=== PATIENT | male | born 1940 | race Caucasian/White ===

== ENCOUNTER 2024-12-24 20:15 | Inpatient (IN) | payer MEDICARE, MEDICAID ==
[~2024-12-24] VITALS: Ht 170.2 cm; Wt 63.0 kg
[2024-12-24 22:01] VITALS: O2SAT 99
[2024-12-24] MEDS: MIDAZOLAM HCL 2 MG/2 ML VIAL IM ONE (22:01)
[2024-12-25] MEDS: MIDAZOLAM HCL 2 MG/2 ML VIAL IM ONE (00:12)
[2024-12-25] MEDS: HALOPERIDOL LACTATE 5MG/ML VIAL IM ONE (00:13)
[2024-12-25] MEDS ORDERED: GUAIFENESIN 200MG/10ML SUGAR FREE UDC PO PRN (01:45)
[2024-12-25] MEDS ORDERED: DOCUSATE SODIUM 100MG CAPSULE PO PRN (01:45)
[2024-12-25] MEDS ORDERED: CLONIDINE 0.1MG TABLET PO PRN (01:45)
[2024-12-25] MEDS ORDERED: LORAZEPAM 2MG/ML UD SYRINGE IV PRN (01:45)
[2024-12-25] MEDS ORDERED: ACETAMINOPHEN 325MG TABLET PO PRN ×2 (01:45)
[2024-12-25] MEDS ORDERED: ONDANSETRON HCL 4MG/2ML INJ IV PRN (01:45)
[2024-12-25] MEDS ORDERED: IPRATROPIUM/ALBUTEROL 0.5-3(2.5)MG/3ML NEB HHN PRN (01:45)
[2024-12-25] MEDS: HALOPERIDOL LACTATE 5MG/ML VIAL IM SCH (02:00)
[2024-12-25] MEDS: MIDAZOLAM HCL 2 MG/2 ML VIAL IM SCH (02:00)
[2024-12-25] MEDS: DIPHENHYDRAMINE 50MG/ML VIAL IM SCH (02:00)
[2024-12-25 02:13] LABS: BASOPHILS % 0.7 % (0.0-2.0); EOSINOPHILS % 5.6 % (0.0-5.0); HEMATOCRIT. 38.3 % (42.0-52.0); HEMOGLOBIN. 12.8 g/dL (14.0-18.0); LYMPHOCYTES % 39.3 % (20.0-50.0); MEAN PLATELET VOLUME 8.6 fl (7.4-10.4); MONOCYTES % 10.7 % (2.0-8.0); NEUTROPHILS % 43.7 % (40.0-76.0); PLATELET 256 x1000/uL (130-400); RED BLOOD CELL COUNT 4.15 mill/uL (4.7-6.1); RED CELL DISTRIBUTION WIDTH 15.6 % (11.6-14.6)
[2024-12-25 02:28] LABS: UREA NITROGEN BLOOD 31 mg/dL (9-23)
[2024-12-25 02:30] LABS: CREATININE 0.9 mg/dL (0.6-1.3); ETHANOL BLOOD < 10 mg/dL (<10)
[2024-12-25 02:31] LABS: ASPARTATE AMINOTRANSFERASE 42 IU/L (<34)
[2024-12-25 02:32] LABS: BILIRUBIN DIRECT 0.2 mg/dL (<=3.0); BILIRUBIN TOTAL 0.5 mg/dL (0.1-1.0); PROTEIN TOTAL 6.9 g/dL (6.0-8.3)
[2024-12-25 02:34] LABS: TROPONIN I HIGH SENSITIVITY 408 ng/L (3.0-53)
[2024-12-25 02:45] VITALS: BP 150/71; PULSE 60; RESP 17; TEMP 36.696
[2024-12-25] MEDS: SODIUM CHLORIDE 0.45% 1,000 ML IV SCH (02:45)
[2024-12-25] MEDS ORDERED: ENOXAPARIN 80MG/0.8ML SYR SUBCUT SCH (03:00)
[2024-12-25] MEDS ORDERED: MVI, ADULT NO.1 10 ML, FOLIC ACID 1 MG, THIAMINE HCL 100 MG in SODIUM CHLORIDE 0.9% 1,0... IV SCH (04:00)
[2024-12-25] MEDS ORDERED: DEXTROSE 50% WATER 50ML SYRINGE IV PRN (05:15)
[2024-12-25] MEDS: BLOOD SUGAR DIAGNOSTIC STRIP TEST SCH (06:45)
[2024-12-25] MEDS: PANTOPRAZOLE 40MG DR TABLET PO SCH (06:45)
[2024-12-25 06:47] LABS: INR 1.0
[2024-12-25] MEDS: INSULIN LISPRO 100 UNITS/ML SUBCUT SCH (07:11)
[2024-12-25 08:00] VITALS: BP 122/69; PULSE 64; RESP 18; TEMP 36.5; O2SAT 94
[2024-12-25 09:07] LABS: LDL CHOLESTEROL 51.0 mg/dL (5-100); TRIGLYCERIDE 75.0 mg/dL (0-150)
[2024-12-25 09:10] LABS: T4 FREE 1.13 ng/dL (0.89-1.76)
[2024-12-25] MEDS: ASPIRIN 81MG TABLET PO SCH (09:21)
[2024-12-25] MEDS: ENOXAPARIN 80MG/0.8ML SYR SUBCUT SCH (09:21)
[2024-12-25 12:00] VITALS: BP 150/88; PULSE 65; RESP 18; TEMP 36.3; O2SAT 94
[2024-12-25 12:35] LABS: TROPONIN I HIGH SENSITIVITY 315 ng/L (3.0-53)
[2024-12-25 16:00] VITALS: BP 135/77; PULSE 67; RESP 18; TEMP 36.4; O2SAT 95
[2024-12-25 19:43] LABS: TROPONIN I HIGH SENSITIVITY 341 ng/L (3.0-53)
[2024-12-25 20:00] VITALS: BP 128/77; PULSE 75; RESP 18; TEMP 36.6; O2SAT 97
[2024-12-26] VITALS: BP 144/79; PULSE 64; RESP 18; TEMP 36.4; O2SAT 95
[2024-12-26 04:00] VITALS: BP 126/78; PULSE 63; RESP 18; TEMP 36.5; O2SAT 97
[2024-12-26 07:51] LABS: PLATELET 246 x1000/uL (130-400); RED BLOOD CELL COUNT 3.99 mill/uL (4.7-6.1); RED CELL DISTRIBUTION WIDTH 15.1 % (11.6-14.6)
[2024-12-26 08:00] VITALS: BP 143/104; PULSE 68; RESP 18; TEMP 36.4; O2SAT 96
[2024-12-26 08:12] LABS: CREATININE 0.9 mg/dL (0.6-1.3); UREA NITROGEN BLOOD 26 mg/dL (9-23)
[2024-12-26 08:52] LABS: TROPONIN I HIGH SENSITIVITY 313 ng/L (3.0-53)
[2024-12-26 12:00] VITALS: BP 109/59; PULSE 80; RESP 20; TEMP 37; O2SAT 95
[2024-12-26] MEDS: AMLODIPINE 5MG TABLET PO SCH (12:00)
[2024-12-26 16:00] VITALS: BP 115/70; PULSE 70; RESP 18; TEMP 36.6; O2SAT 95
[2024-12-26 20:00] VITALS: BP 134/73; PULSE 68; RESP 17; TEMP 36.4; O2SAT 97
[2024-12-27] VITALS: BP 147/92; PULSE 67; RESP 19; TEMP 36.4; O2SAT 93
[2024-12-27 04:00] VITALS: BP 107/65; PULSE 61; RESP 18; TEMP 36.5; O2SAT 94
[2024-12-27 07:20] LABS: PLATELET 217 x1000/uL (130-400); RED BLOOD CELL COUNT 3.81 mill/uL (4.7-6.1); RED CELL DISTRIBUTION WIDTH 15.4 % (11.6-14.6)
[2024-12-27 07:31] LABS: CREATININE 1.1 mg/dL (0.6-1.3); UREA NITROGEN BLOOD 29 mg/dL (9-23)
[2024-12-27 08:00] VITALS: BP 123/81; PULSE 73; RESP 18; TEMP 36.1; O2SAT 98
[2024-12-27] MEDS: ENOXAPARIN 40MG/0.4ML SYR SUBCUT SCH (08:17)
[2024-12-27 12:00] VITALS: BP 130/88; PULSE 80; RESP 19; TEMP 36; O2SAT 100
[2024-12-27 16:00] VITALS: BP 123/77; PULSE 81; RESP 18; TEMP 36.1; O2SAT 90
[2024-12-27 20:00] VITALS: BP 129/78; PULSE 67; RESP 18; TEMP 37.1; O2SAT 97
[2024-12-28] VITALS: BP 107/67; PULSE 65; RESP 16; TEMP 36.5; O2SAT 97
[2024-12-28 04:00] VITALS: BP 98/76; PULSE 63; RESP 16; RESP 17; TEMP 36.2; O2SAT 100; O2SAT 95
[2024-12-28 07:23] LABS: PLATELET 213 x1000/uL (130-400); RED BLOOD CELL COUNT 3.69 mill/uL (4.7-6.1); RED CELL DISTRIBUTION WIDTH 15.2 % (11.6-14.6)
[2024-12-28 07:33] LABS: CREATININE 1.2 mg/dL (0.6-1.3)
[2024-12-28 07:34] LABS: UREA NITROGEN BLOOD 33 mg/dL (9-23)
[2024-12-28 08:00] VITALS: BP 126/69; PULSE 73; RESP 17; TEMP 36.4; O2SAT 96
[2024-12-28 08:23] LABS: FOLIC ACID (FOLATE) SERUM 7.66 ng/mL (>5.38); VITAMIN B12 SERUM 1007 pg/mL (211-911)
[2024-12-28] MEDS: SODIUM CHLORIDE 0.9% 1,000 ML IV SCH (10:00)
[2024-12-28 12:00] VITALS: BP 96/70; PULSE 60; RESP 17; TEMP 36.6; O2SAT 100
[2024-12-28 20:00] VITALS: BP 141/67; PULSE 64; RESP 18; TEMP 36.8; O2SAT 98
[2024-12-29] VITALS: BP 145/90; PULSE 64; RESP 19; TEMP 36.4; O2SAT 94
[2024-12-29 08:00] VITALS: BP 152/94; PULSE 76; RESP 18; TEMP 36.4; O2SAT 96
[2024-12-29] MEDS: FAMOTIDINE 20MG TABLET PO SCH (09:00)
[2024-12-29] MEDS: ENOXAPARIN 60MG/0.6ML SYR SUBCUT SCH (09:00)
[2024-12-29 12:00] VITALS: BP 117/86; PULSE 67; RESP 20; TEMP 36.7; O2SAT 100
[2024-12-29 16:00] VITALS: BP 132/75; PULSE 68; RESP 18; TEMP 36.8; O2SAT 100
[2024-12-29 20:00] VITALS: BP 138/86; PULSE 74; RESP 18; TEMP 36.6; O2SAT 95
[2024-12-29] MEDS: LORAZEPAM 0.5MG TABLET PO PRN (23:48)
[2024-12-30] VITALS: BP 148/87; PULSE 65; RESP 18; TEMP 36.5; O2SAT 98
[2024-12-30 04:00] VITALS: BP 103/63; PULSE 60; RESP 16; TEMP 36.4; O2SAT 96
[2024-12-30 08:00] VITALS: BP 106/61; PULSE 69; RESP 16; TEMP 36.5; O2SAT 96
[2024-12-30 10:42] LABS: PLATELET 206 x1000/uL (130-400); RED BLOOD CELL COUNT 3.75 mill/uL (4.7-6.1); RED CELL DISTRIBUTION WIDTH 15.4 % (11.6-14.6)
[2024-12-30 11:17] LABS: CREATININE 1.1 mg/dL (0.6-1.3); UREA NITROGEN BLOOD 30 mg/dL (9-23)
[2024-12-30 12:00] VITALS: BP 106/70; PULSE 64; RESP 18; TEMP 36.4; O2SAT 97
[2024-12-30 15:09] VITALS: BP 115/78; PULSE 81; RESP 18; TEMP 97.2
[2024-12-30 16:00] VITALS: BP 115/78; PULSE 81; RESP 18; TEMP 36.2; O2SAT 97
[2024-12-31] VITALS: BP 117/64; PULSE 78; RESP 18; TEMP 36.4; O2SAT 95
[2024-12-31 04:00] VITALS: BP 139/87; PULSE 65; RESP 18; TEMP 35.9; O2SAT 97
[2024-12-31 08:00] VITALS: BP 150/100; PULSE 79; RESP 20; TEMP 36.3; O2SAT 98
[2024-12-31 12:00] VITALS: BP 126/84; PULSE 73; RESP 19; TEMP 36.3; O2SAT 98
[2024-12-31 16:00] VITALS: BP 135/80; PULSE 81; RESP 19; TEMP 36.4; O2SAT 97
[2024-12-31 20:00] VITALS: BP 128/60; PULSE 69; RESP 18; TEMP 36.5; O2SAT 95
[2025-01-01 08:00] VITALS: BP 118/90; PULSE 73; RESP 18; TEMP 36.3; O2SAT 97
[2025-01-01 12:00] VITALS: BP 130/75; PULSE 80; RESP 18; TEMP 36.3; O2SAT 99
[2025-01-01 16:00] VITALS: BP 115/78; PULSE 62; RESP 18; TEMP 36.4; O2SAT 98
[2025-01-01 20:00] VITALS: BP 148/75; PULSE 66; RESP 18; TEMP 36.8; O2SAT 97
[2025-01-02 08:00] VITALS: BP 114/75; PULSE 61; RESP 19; TEMP 36.3; O2SAT 98
[2025-01-02 12:00] VITALS: BP 119/74; PULSE 76; RESP 18; TEMP 36.4; O2SAT 98
[2025-01-02 16:00] VITALS: BP 115/84; PULSE 69; RESP 19; TEMP 36.5; O2SAT 97
[2025-01-02 20:00] VITALS: BP 126/79; PULSE 76; RESP 16; TEMP 36.6; O2SAT 98
[2025-01-03] VITALS: BP 134/83; PULSE 73; RESP 18; TEMP 36.6; O2SAT 98
[2025-01-03 08:00] VITALS: BP 133/81; PULSE 61; RESP 20; TEMP 36.4; O2SAT 96
[2025-01-03 12:00] VITALS: BP 138/85; PULSE 55; RESP 20; TEMP 36.7; O2SAT 98
[2025-01-03 16:00] VITALS: BP 141/79; PULSE 64; RESP 20; TEMP 36.4
[2025-01-03 20:00] VITALS: BP 112/74; PULSE 61; RESP 18; TEMP 36.7; O2SAT 99
[2025-01-04] VITALS: BP 116/86; PULSE 71; RESP 20; TEMP 36.6; O2SAT 98
[2025-01-04 04:00] VITALS: BP 110/74; PULSE 75; RESP 18; TEMP 36.7; O2SAT 98
[2025-01-04 08:00] VITALS: BP 105/78; PULSE 59; RESP 18; TEMP 36.3; O2SAT 99
[2025-01-04 12:00] VITALS: BP 126/82; PULSE 62; RESP 18; TEMP 36.6; O2SAT 18
[2025-01-04 20:00] VITALS: BP 107/56; PULSE 66; RESP 20; TEMP 36.6; O2SAT 97
[2025-01-05 04:00] VITALS: BP 112/68; PULSE 62; RESP 18; TEMP 36.7; O2SAT 97
[2025-01-05 08:00] VITALS: BP 121/80; PULSE 64; RESP 18; TEMP 36.4; O2SAT 99
[2025-01-05 12:00] VITALS: BP 118/59; PULSE 67; RESP 16; TEMP 36.1; O2SAT 98
[2025-01-05 16:00] VITALS: BP 137/78; PULSE 64; RESP 16; TEMP 36.3; O2SAT 98
[2025-01-05 20:00] VITALS: BP 144/98; PULSE 65; RESP 20; TEMP 36.7; O2SAT 99
[2025-01-06] VITALS: BP 122/74; PULSE 62; RESP 20; TEMP 36.6; O2SAT 98
[2025-01-06 07:51] LABS: CREATININE 1.0 mg/dL (0.6-1.3); UREA NITROGEN BLOOD 29 mg/dL (9-23)
[2025-01-06 08:00] VITALS: BP 123/65; PULSE 68; RESP 20; TEMP 36.5; O2SAT 100
[2025-01-06 08:05] LABS: PLATELET 201 x1000/uL (130-400); RED BLOOD CELL COUNT 3.83 mill/uL (4.7-6.1); RED CELL DISTRIBUTION WIDTH 16.7 % (11.6-14.6)
[2025-01-06 12:00] VITALS: BP 110/76; PULSE 69; RESP 20; TEMP 36.4; O2SAT 99
[2025-01-06 16:00] VITALS: BP 106/56; PULSE 64; RESP 20; TEMP 36.3; O2SAT 96
[2025-01-07] VITALS: BP 134/75; PULSE 70; RESP 18; TEMP 36.5; O2SAT 99
[2025-01-07 08:25] VITALS: BP 137/89; PULSE 74; RESP 18; TEMP 36.6; O2SAT 99
[2025-01-07 16:15] VITALS: BP 122/75; PULSE 69; RESP 18; TEMP 36.4; O2SAT 96
[2025-01-08] VITALS: BP 145/91; PULSE 67; RESP 18; TEMP 36.2; O2SAT 99
[2025-01-08 08:00] VITALS: BP 127/83; RESP 20; TEMP 36.7; O2SAT 96
[2025-01-08 12:00] VITALS: BP 140/74; RESP 20; TEMP 36.5; O2SAT 95
[2025-01-08 16:00] VITALS: BP 125/83; RESP 20; TEMP 36.7; O2SAT 97
[2025-01-09 20:00] VITALS: BP 145/86; PULSE 66; RESP 14; TEMP 36.8; O2SAT 98
[2025-01-10] VITALS: BP 132/76; RESP 14; TEMP 36.2; O2SAT 97
[2025-01-10 08:00] VITALS: BP 115/69; PULSE 63; RESP 16; TEMP 36.4; O2SAT 96
[2025-01-10 12:00] VITALS: BP 134/84; PULSE 62; RESP 17; TEMP 36.7; O2SAT 97
[2025-01-10 16:00] VITALS: BP 116/64; PULSE 64; RESP 17; TEMP 36.5; O2SAT 96
[2025-01-11 08:00] VITALS: BP 123/71; PULSE 63; RESP 17; TEMP 36.7; O2SAT 96
[2025-01-11 12:00] VITALS: BP 121/69; PULSE 65; RESP 17; TEMP 36.5; O2SAT 97
[2025-01-11 16:00] VITALS: BP 122/83; PULSE 63; RESP 18; TEMP 36.8; O2SAT 96
[2025-01-12 08:30] VITALS: BP 104/69; PULSE 74; RESP 16; TEMP 36.7; O2SAT 96
[2025-01-12 12:00] VITALS: BP 127/76; PULSE 62; RESP 18; TEMP 36.6; O2SAT 97
[2025-01-13 08:00] VITALS: BP 114/83; PULSE 63; RESP 18; TEMP 36.4; O2SAT 98
[2025-01-13 12:00] VITALS: BP 118/76; PULSE 67; RESP 18; TEMP 36.7; O2SAT 98
[2025-01-13 16:00] VITALS: BP 117/69; PULSE 66; RESP 18; TEMP 36.5; O2SAT 9
[2025-01-13] MEDS: ENOXAPARIN 60MG/0.6ML SYR SUBCUT SCH (16:30)
[2025-01-14 08:00] VITALS: BP 106/77; PULSE 61; RESP 17; TEMP 36.5; O2SAT 96
[2025-01-14 12:00] VITALS: BP 107/68; PULSE 63; RESP 18; TEMP 36.8; O2SAT 96
[2025-01-14 20:00] VITALS: BP 108/64; PULSE 72; RESP 18; TEMP 36.8; O2SAT 99
[2025-01-15 08:00] VITALS: BP 138/87; PULSE 70; RESP 17; TEMP 36.5; O2SAT 97
[2025-01-15] MEDS ORDERED: AMLO5TAB88 PO (09:43)
[2025-01-15] MEDS ORDERED: ASPI-1160 PO (09:43)
[2025-01-15 12:00] VITALS: BP 128/80; PULSE 65; RESP 18; TEMP 36.4; O2SAT 96
[2025-01-15 12:48] VITALS: BP 140/88; PULSE 64; RESP 17; TEMP 97.8
[2025-01-16 08:00] VITALS: BP 154/87; PULSE 68; RESP 18; TEMP 36.4; O2SAT 96
[2025-01-16 12:00] VITALS: BP 107/78; PULSE 67; RESP 18; TEMP 36.4; O2SAT 100
[2025-01-17 08:00] VITALS: BP 113/61; PULSE 64; RESP 17; TEMP 36.6; O2SAT 98
[2025-01-17 12:00] VITALS: BP 118/85; PULSE 64; RESP 18; TEMP 36.4; O2SAT 100
[2025-01-17 16:00] VITALS: BP 130/80; PULSE 63; RESP 18; TEMP 36.3; O2SAT 99
[2025-01-18 08:00] VITALS: BP 106/76; PULSE 66; RESP 18; TEMP 36.8; O2SAT 97
[2025-01-18 12:00] VITALS: BP 107/65; PULSE 89; RESP 18; TEMP 36.4; O2SAT 98
[2025-01-19] VITALS: BP 131/74; PULSE 60; RESP 18; TEMP 36.5; O2SAT 98
[2025-01-19 04:00] VITALS: BP 135/72; PULSE 60; RESP 18; TEMP 36.5; O2SAT 98
[2025-01-19 08:00] VITALS: BP 104/65; PULSE 63; RESP 18; TEMP 36.8; O2SAT 100
[2025-01-19 16:00] VITALS: BP 143/65; PULSE 61; RESP 18; TEMP 36.5; O2SAT 97
[2025-01-19 20:00] VITALS: BP 132/78; PULSE 78; RESP 18; TEMP 36.6; O2SAT 98
[2025-01-20 04:00] VITALS: BP 109/68; PULSE 62; RESP 16; TEMP 36.5
[2025-01-20 08:00] VITALS: BP 120/86; PULSE 80; RESP 18; TEMP 36.7
[2025-01-20 16:00] VITALS: BP 134/79; PULSE 71; RESP 16; TEMP 36.9
[2025-01-20 20:00] VITALS: BP 122/74; PULSE 69; RESP 18; TEMP 36.8; O2SAT 98
[2025-01-21] VITALS: BP 138/85; PULSE 68; RESP 16; TEMP 36.5; O2SAT 97
[2025-01-21 04:00] VITALS: BP 111/60; PULSE 72; RESP 16; TEMP 36.6; O2SAT 96
[2025-01-21 08:00] VITALS: BP 123/72; PULSE 60; RESP 18; TEMP 36.2; O2SAT 98
[2025-01-21 12:00] VITALS: BP 127/69; PULSE 60; RESP 17; TEMP 36.5; O2SAT 98
[2025-01-21 16:00] VITALS: BP 126/73; PULSE 63; RESP 18; TEMP 36.6; O2SAT 100
[2025-01-21 20:00] VITALS: BP 135/105; PULSE 71; RESP 18; TEMP 36.5; O2SAT 100
[2025-01-22 04:00] VITALS: BP 136/93; PULSE 85; RESP 19; TEMP 36.2; O2SAT 96
[2025-01-22 08:00] VITALS: BP 133/97; PULSE 72; RESP 18; TEMP 36.6; O2SAT 97
[2025-01-25 04:00] VITALS: BP 119/88; RESP 18; TEMP 36.6; O2SAT 97
[2025-01-27 08:00] VITALS: BP 110/70; PULSE 61; RESP 21; TEMP 36.5
[2025-01-27] MEDS ORDERED: CLONIDINE 0.1MG TABLET PO PRN (13:15)
[2025-01-27] MEDS ORDERED: MAGNESIUM/ALUMINUM HYDROXIDE/SIMETHICONE 30ML UDC PO PRN (13:15)
[2025-01-27] MEDS ORDERED: DOCUSATE SODIUM 100MG CAPSULE PO PRN (13:15)
[2025-01-27] MEDS ORDERED: GUAIFENESIN-DM 200MG-20MG/10ML UDC PO PRN (13:15)
[2025-01-27] MEDS ORDERED: ACETAMINOPHEN 325MG TABLET PO PRN (13:15)
[2025-01-27 14:10] VITALS: BP 142/87; PULSE 75; RESP 20; TEMP 36.8
[2025-01-27] MEDS: ASPIRIN 81MG TABLET PO SCH (14:15)
[2025-01-27] MEDS: AMLODIPINE 5MG TABLET PO SCH (14:15)
[2025-01-27 16:00] VITALS: BP 117/89; PULSE 65; RESP 19; TEMP 36.6
[2025-01-27 20:00] VITALS: RESP 19; TEMP 36.7
[2025-01-27] MEDS: FAMOTIDINE 20MG TABLET PO SCH (21:48)
[2025-01-28] VITALS: BP 126/72; RESP 19; TEMP 36.7
[2025-01-28 04:00] VITALS: TEMP 36.7
[2025-01-28] MEDS: ENOXAPARIN 40MG/0.4ML SYR SUBCUT SCH (08:47)
[2025-01-29 08:00] VITALS: RESP 18
[2025-01-29 12:00] VITALS: RESP 17
[2025-01-29 16:00] VITALS: RESP 16
[2025-01-30 08:00] VITALS: BP 126/85; PULSE 60; RESP 19; TEMP 36.5
[2025-01-30 12:00] VITALS: BP 145/87; PULSE 61; RESP 18; TEMP 36.5
[2025-01-30 16:00] VITALS: BP 139/83; PULSE 64; RESP 20; TEMP 36.2
[2025-01-31 08:00] VITALS: BP 142/97; PULSE 72; RESP 19; TEMP 36.8; O2SAT 100
[2025-01-31 12:00] VITALS: BP 132/86; PULSE 69; RESP 17; TEMP 36.6; O2SAT 98
[2025-02-01 08:00] VITALS: BP 118/93; PULSE 62; RESP 18; TEMP 36.4; O2SAT 99
[2025-02-01 12:00] VITALS: BP 102/69; PULSE 63; RESP 18; TEMP 36.7; O2SAT 98
[2025-02-01 16:00] VITALS: BP 132/85; PULSE 69; RESP 18; TEMP 36.3; O2SAT 100
[2025-02-02 08:00] VITALS: BP 114/70; PULSE 60; RESP 18; TEMP 36.4; O2SAT 98
[2025-02-02 16:00] VITALS: BP 128/61; PULSE 71; RESP 18; TEMP 36.6; O2SAT 98
[2025-02-03] MEDS: LORAZEPAM 0.5MG TABLET PO NR (13:00)
== END 2025-02-03 22:39 | disposition home or self-care (01) | DRG 91 ==
LOC: ER 20:15 → 5WST 23:37 → EDBEDREQ 23:39 → EDBEDREQSVC 23:39 → EDBEDREQTM 23:39 → ENRESERV 12-25 → 8EST 12-29 20:20
PROVIDERS: ADMIT Internal Medicine; ATTEND Internal Medicine
PROC: GZ56ZZZ Individual Psychotherapy, Supportive (ICD-10-PCS; principal; 2024-12-25)
DX: G92.8 Other toxic encephalopathy (principal); I21.A1 Myocardial infarction type 2; Z59.00 Homelessness unspecified; F41.9 Anxiety disorder, unspecified; F29 Unspecified psychosis not due to a substance or known physiological condition; I10 Essential (primary) hypertension; E67.8 Other specified hyperalimentation; R56.9 Unspecified convulsions; N28.9 Disorder of kidney and ureter, unspecified; R26.81 Unsteadiness on feet; Z79.82 Long term (current) use of aspirin; Z95.2 Presence of prosthetic heart valve; Z79.899 Other long term (current) drug therapy; Z95.0 Presence of cardiac pacemaker
CPT/HCPCS: 36415; 71045; 80048; 80061; 80076; 80307; 80320; 80329; 82140; 82550; 82607; 82728; 82746; 82962; 83036; 83540; 83550; 83605; 84439; 84443; 84484; 85025; 85027; 93005; 93306; 93970; 97162; 97166; 99285; A4606; J1200; J1630; J1650; J2250; J3411; J3490; J7030; G0480